=== PATIENT | male | born 1990 | race Caucasian/White ===

== ENCOUNTER 2019-06-18 20:46 | Inpatient (IN) | payer BC ==
[~2019-06-18] VITALS: Ht 175.3 cm; Wt 83.1 kg
[2019-06-18 22:51] LABS: BASOPHIL % 0.9 % (0-2); PLATELET COUNT 293 x10^3mcL (130-400); RED CELL DISTRIBUTION WIDTH 13.4 % (11.5-14.5)
[2019-06-18 23:08] LABS: CALCIUM 9.5 mg/dL (8.5-10.1); CARBON DIOXIDE 28.2 mmol/L (21-32); CHLORIDE SERUM 104 mmol/L (98-107); CREATININE SERUM 1.1 mg/dL (0.7-1.3); GFR1 > 60 mL/min; GLUCOSE SERUM 119 mg/dL (74-106); POTASSIUM SERUM 3.4 mmol/L (3.5-5.1); SODIUM SERUM 142 mmol/L (136-145)
[2019-06-18 23:10] LABS: ALBUMIN 4.4 g/dL (3.4-5.0); ALKALINE PHOSPHATASE 69 U/L (46-116); ALT/SGPT 40 U/L (16-63); AST/SGOT 25 U/L (15-37); BILIRUBIN TOTAL 0.4 mg/dL (0.20-1.00)
[2019-06-19] VITALS (7 sets, daily range): BP systolic 112–136; BP diastolic 59–88; Ht 175.3 cm; Wt 83.1 kg
[2019-06-19] MEDS ORDERED: XANAX0.5 MG PO (00:46)
[2019-06-19] MEDS ORDERED: PROAIR HFA8.5 GM INH (00:46)
[2019-06-19 02:12] LABS: microscopic required? NO
[2019-06-19 02:28] LABS: UA SPECIFIC GRAVITY <=1.005 (1.005-1.035); urine erythrocyte NEGATIVE (NEGATIVE)
[2019-06-19 03:31] LABS: AMPHETAMINE QUAL UR NONE DETECTED (See below)
[2019-06-19 07:13] LABS: PLATELET COUNT 256 x10^3mcL (130-400); RED CELL DISTRIBUTION WIDTH 13.3 % (11.5-14.5)
[2019-06-19 07:42] LABS: CALCIUM 8.8 mg/dL (8.5-10.1); CHLORIDE SERUM 106 mmol/L (98-107); GFR1 > 60 mL/min; GLUCOSE SERUM 109 mg/dL (74-106); PHOSPHOROUS 4.3 mg/dL (2.5-4.9); POTASSIUM SERUM 3.9 mmol/L (3.5-5.1); SODIUM SERUM 141 mmol/L (136-145)
[2019-06-20 06:00] VITALS: BP 113/70
[2019-06-20 06:13] LABS: BASOPHIL % 1.1 % (0-2); PLATELET COUNT 266 x10^3mcL (130-400); RED CELL DISTRIBUTION WIDTH 13.4 % (11.5-14.5)
[2019-06-20 06:53] LABS: CALCIUM 9.3 mg/dL (8.5-10.1); CARBON DIOXIDE 26.1 mmol/L (21-32); CHLORIDE SERUM 107 mmol/L (98-107); GFR1 > 60 mL/min; GLUCOSE SERUM 101 mg/dL (74-106); POTASSIUM SERUM 4.4 mmol/L (3.5-5.1); SODIUM SERUM 142 mmol/L (136-145)
[2019-06-20 09:22] VITALS: BP 126/59
[2019-06-20 12:48] VITALS: BP 118/73
[2019-06-20 17:30] VITALS: BP 126/72
[2019-06-21 05:10] VITALS: BP 132/69
[2019-06-21 06:25] LABS: BASOPHIL % 0.7 % (0-2); PLATELET COUNT 260 x10^3mcL (130-400); RED CELL DISTRIBUTION WIDTH 13.4 % (11.5-14.5)
[2019-06-21 06:57] LABS: CALCIUM 9.2 mg/dL (8.5-10.1); CARBON DIOXIDE 27.1 mmol/L (21-32); CHLORIDE SERUM 102 mmol/L (98-107); GFR1 > 60 mL/min; GLUCOSE SERUM 98 mg/dL (74-106); POTASSIUM SERUM 4.4 mmol/L (3.5-5.1); SODIUM SERUM 139 mmol/L (136-145)
[2019-06-21 08:12] VITALS: BP 103/50
[2019-06-21 11:43] VITALS: BP 117/64
[2019-06-21 16:32] VITALS: BP 124/74
[2019-06-21 20:00] VITALS: BP 116/76
[2019-06-22 05:40] VITALS: BP 123/69
[2019-06-22 08:20] VITALS: BP 115/70
[2019-06-22 12:10] VITALS: BP 108/62
[2019-06-22 16:27] VITALS: BP 127/96
== END 2019-06-22 18:15 | disposition home or self-care (01) | DRG 200 ==
LOC: ED 20:46 → DU 06-19 00:03 → MU 06-22 10:10
PROVIDERS: Specialist; Student in an Organized Health Care Education/Training Program; ADMIT Internal Medicine
PROC: 0W9B30Z Drainage of Left Pleural Cavity with Drainage Device, Percutaneous Approach (ICD-10-PCS; principal; 2019-06-21)
DX: J93.83 Other pneumothorax (principal); J45.901 Unspecified asthma with (acute) exacerbation; E87.6 Hypokalemia; F17.290 Nicotine dependence, other tobacco product, uncomplicated; F12.90 Cannabis use, unspecified, uncomplicated; Z88.0 Allergy status to penicillin; Z88.1 Allergy status to other antibiotic agents; Z79.899 Other long term (current) drug therapy; Z71.51 Drug abuse counseling and surveillance of drug abuser; Z71.6 Tobacco abuse counseling
CPT/HCPCS: 32551; 94150; C1729; G0378; J2001; J2060; J2270; J2405; J3010; J7620; J7626; Q0092

== ENCOUNTER 2019-08-25 09:17 | Inpatient (IN) | payer BC, SELFPAY ==
[~2019-08-25] VITALS: Ht 175.3 cm; Wt 79.4 kg
[~2019-08-25 09:17] MED LIST: PROAIR HFA8.5 GM INH; XANAX0.5 MG PO
[2019-08-25 09:18] VITALS: Ht 175.3 cm; Wt 79.4 kg
[2019-08-25 11:43] LABS: BASOPHIL % 0.3 % (0-2); PLATELET COUNT 131 x10^3mcL (130-400); RED CELL DISTRIBUTION WIDTH 13.2 % (11.5-14.5)
[2019-08-25 11:52] LABS: CALCIUM 9.7 mg/dL (8.5-10.1); CARBON DIOXIDE 30.4 mmol/L (21-32); CHLORIDE SERUM 103 mmol/L (98-107); CREATININE SERUM 0.9 mg/dL (0.7-1.3); GFR1 > 60 mL/min; GLUCOSE SERUM 109 mg/dL (74-106); POTASSIUM SERUM 4.6 mmol/L (3.5-5.1); SODIUM SERUM 140 mmol/L (136-145)
[2019-08-25 11:56] LABS: MAGNESIUM 2.3 mg/dL (1.8-2.4); PHOSPHOROUS 2.8 mg/dL (2.5-4.9)
[2019-08-25 13:39] VITALS: BP 139/92
[2019-08-25 15:00] VITALS: BP 139/92
[2019-08-25 16:40] VITALS: BP 121/79
[2019-08-25 21:19] VITALS: BP 140/74
[2019-08-26 06:00] VITALS: BP 116/77
[2019-08-26 06:32] LABS: BASOPHIL % 0.4 % (0-2); RED CELL DISTRIBUTION WIDTH 13.6 % (11.5-14.5)
[2019-08-26 06:49] LABS: CALCIUM 9.6 mg/dL (8.5-10.1); CARBON DIOXIDE 30.1 mmol/L (21-32); CHLORIDE SERUM 104 mmol/L (98-107); CREATININE SERUM 0.8 mg/dL (0.7-1.3); GFR1 > 60 mL/min; GLUCOSE SERUM 105 mg/dL (74-106); POTASSIUM SERUM 4.2 mmol/L (3.5-5.1); SODIUM SERUM 142 mmol/L (136-145)
[2019-08-26 07:06] LABS: PLATELET COUNT 123 x10^3mcL (130-400)
[2019-08-26 08:05] VITALS: BP 105/78
[2019-08-26 10:09] VITALS: BP 105/78
== END 2019-08-26 11:54 | disposition home or self-care (01) | DRG 201 ==
LOC: ED 09:17 → MU 11:13 → DU 11:13 → MU 12:10 → DU 20:49
PROVIDERS: ADMIT Student in an Organized Health Care Education/Training Program
DX: J93.83 Other pneumothorax (principal); J45.909 Unspecified asthma, uncomplicated; Z88.0 Allergy status to penicillin; Z88.1 Allergy status to other antibiotic agents; Z80.9 Family history of malignant neoplasm, unspecified; Z72.89 Other problems related to lifestyle; Z87.891 Personal history of nicotine dependence
CPT/HCPCS: 32551; C1729; G0378; J2001; J2250; J2270; J3010; Q0092

== ENCOUNTER 2019-09-28 10:49 | Emergency (ER) | payer BC ==
[~2019-09-28] VITALS: Ht 175.3 cm; Wt 82.1 kg
[2019-09-28 10:54] VITALS: Ht 175.3 cm; Wt 82.1 kg
[2019-09-28 12:33] VITALS: BP 141/80
== END 2019-09-28 12:33 | disposition home or self-care (01) ==
LOC: ED 10:49
DX: M54.6 Pain in thoracic spine (principal); Z88.0 Allergy status to penicillin; Z88.1 Allergy status to other antibiotic agents; J45.909 Unspecified asthma, uncomplicated
CPT/HCPCS: Q0092

== ENCOUNTER 2019-10-29 14:47 | Emergency (ER) | payer BC, SELFPAY ==
[~2019-10-29] VITALS: Ht 177.8 cm; Wt 81.2 kg
[2019-10-29 14:59] VITALS: Ht 177.8 cm; Wt 81.2 kg
[2019-10-29 17:09] VITALS: BP 142/88
== END 2019-10-29 17:09 | disposition home or self-care (01) ==
LOC: ED 14:47
DX: K29.20 Alcoholic gastritis without bleeding (principal); F10.20 Alcohol dependence, uncomplicated; J45.909 Unspecified asthma, uncomplicated; Z88.0 Allergy status to penicillin; Z88.1 Allergy status to other antibiotic agents
CPT/HCPCS: Q0092